=== PATIENT | male | born 1980 | race Caucasian/White ===

== ENCOUNTER → 2020-07-15 06:40 | Outpatient (CLI) | payer OTHER, SELFPAY ==
[2020-07-08 10:30] VITALS: BMI 44.9
--- NOTE | 2020-07-15 06:43 | MRI_ITS ---
STUDY: MRI RIGHT KNEE REASON FOR EXAM: Lateral knee pain for 2 years, remote injuries from football. TECHNIQUE: Standardized fat and water weighted pulse sequences were obtained in all 3 orthogonal planes. COMPARISON: Radiographs 07/08/2020. 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 Normal hyaline cartilage of the medial femorotibial compartment. There are small marginal osteophytes of the medial femoral condyle. Normal medial femoral condyle and tibial plateau. There is mild thickening of the medial collateral ligament (T2 coronal image 18) consistent with scarring. Normal distal semimembranosus, gracilis and semitendinosus tendons. There is tear/degeneration of the anterior and posterior horns and body of the lateral meniscus (proton-density sagittal images 8-15; proton-density coronal images 14-19). There is arthrosis of the lateral femorotibial compartment with marginal osteophytes, chondral thinning (T2 sagittal image 7) and slight subchondral bone edema. Normal proximal tibiofibular articulation. Normal lateral collateral (fibular) ligament. Normal popliteus tendon. Normal biceps femoris tendon. There is mild intrasubstance mucoid degeneration of the anterior cruciate ligament (T2 sagittal image 14). There is mild intrasubstance mucoid degeneration of the posterior cruciate ligament (T2 sagittal image 15). There is mild lateral tilt and mild lateral subluxation of the patella (T2 axial image 13). There is arthrosis of the patellofemoral compartment with small marginal osteophytes and chondral thinning (T2 sagittal image 10). Normal medial and lateral patellar retinaculum. Normal visualized quadriceps tendon. Normal patellar tendon. Normal Hoffa''s fat pad. There is a small joint effusion. There is a thin medial patellar plica. There is mild edema in the anterior subcutis adipose space. There is very mild edema in the proximal tibia at the insertion sites of the cruciate ligaments. MRI/Lower Ext Joint Only (Routine) IMPRESSION: Lateral meniscal tear/degeneration. Arthrosis of the lateral femorotibial and patellofemoral compartments. Mild scarring of the medial collateral ligament. Mild lateral tilt and mild lateral subluxation of the patella. Small joint effusion. Electronically Signed: Mauro Mayer MD at 8:39 EDT Tel , Service support ,
== END ==
PROVIDERS: Referring Provider Physician Assistant; Visit Provider Physician Assistant
DX: M25.561 Pain in right knee (principal); M17.11 Unilateral primary osteoarthritis, right knee
CPT/HCPCS: 73721